=== PATIENT | male | born 1955 | race Caucasian/White ===

== ENCOUNTER 2020-04-27 16:32 | Emergency (ER) | payer OTHER ==
[~2020-04-27] VITALS: Ht 180.3 cm; Wt 117.9 kg
[2020-04-27] MEDS ORDERED: PREVACID (16:51)
[2020-04-27] MEDS ORDERED: AVALIDE (16:53)
[2020-04-27] MEDS ORDERED: JANUVIA (16:53)
[2020-04-27] MEDS ORDERED: INVOKAMET (16:54)
[2020-04-27] MEDS ORDERED: [UNRECOGNIZED DRUG - OTHER] (16:55)
== END 2020-04-27 17:38 | disposition home or self-care (01) ==
LOC: ER 16:32
DX: S61.021A Laceration with foreign body of right thumb without damage to nail, initial encounter (principal); W26.0XXA Contact with knife, initial encounter; Y93.89 Activity, other specified; Y92.098 Other place in other non-institutional residence as the place of occurrence of the external cause; Y99.8 Other external cause status